=== PATIENT | male | born 1970 | race Caucasian/White ===

== ENCOUNTER 2020-12-26 15:55 | Outpatient (CLI) | payer BC ==
--- NOTE | 2020-12-26 17:57 | RAD ---
LEFT ANKLE THREE VIEWS: History: Infection FINDINGS: Prominent soft tissue swelling seen medially and laterally. There are no acute osseous abnormalities. Degenerative changes from the medial malleolus with accessory ossicles or old fracture fragments in the distal medial malleolus. IMPRESSION: No acute osseous abnormality. POS: [facility]
== END 2020-12-26 15:56 | disposition home or self-care (01) ==
LOC: RAD 15:55
PROVIDERS: ATTEND Specialist
DX: M00.9 Pyogenic arthritis, unspecified (principal)